=== PATIENT | male | born 1945 | race Hispanic/Latino ===

== ENCOUNTER 2019-05-22 09:57 | Outpatient (CLI) | payer MEDICARE, OTHER ==
--- NOTE | 2019-05-22 11:27 | XRay Report ---
Right foot, 3 views INDICATION: Right foot pain and swelling. COMPARISON: None. IMPRESSION: No acute osseous or soft tissue abnormality. No significant DJD. Signer Name: Aelxx Cuevas Jr, MD Signed: 05/22/2019 11:23 AM Workstation Name: [id number]
== END 2019-05-22 09:58 | disposition home or self-care (01) ==
LOC: SPVIMAG 09:57
PROVIDERS: ATTEND Internal Medicine
DX: M79.671 Pain in right foot (principal)